=== PATIENT | female | born 1980 | race Caucasian/White ===

== ENCOUNTER 2024-12-20 05:22 | Emergency (ER) | payer BC, MEDICAID ==
[~2024-12-20] VITALS: Ht 172.7 cm; Wt 82.3 kg
[~2024-12-20 05:22] MED LIST: CARI350T PO; CYCL-1 PO; DIAZ5TAB PO; FLUT16SP10 NAS; NO HOME MEDS; ONDA4TAB6 PO
[2024-12-20 05:25] VITALS: TEMP 98.4
--- NOTE | 2024-12-20 05:35 | Physician Documentation ---
History of Present Illness ~ Chief Complaint: Back Pain Stated Complaint: LEFT SIDE PAIN Time Seen by MD: 05:34 Primary Medical Doctor: [facility] Patient presents to the emergency room for evaluation of lower back pain. Patient was history of chronic lower back pain and feels that may be the hardware she was had previously placed may have slipped out of alignment. No lower extremity symptoms. No bladder or bowel incontinence. Patient does report some degree of paresthesia to the skin on her left-sided back superior to area of pain Medication Reconciliation Allergies: Coded Allergies: No Known Allergies (Unverified , 12/20/24) Scheduled Diazepam (Valium), 1 TABLET PO HS Fluticasone Propionate (Flonase), 2 SPRAYS JESSICA DAILY Ondansetron Hcl (Zofran), 1 TABLET PO Q8H Prednisone* (Prednisone*), 1 TAB PO DAILY Prednisone* (Prednisone*), 1 TAB PO DAILY Scheduled PRN Carisoprodol (Soma), 1 TABLET PO Q6H PRN for muscle spasms Cyclobenzaprine* (Cyclobenzaprine*), 1 TABLET PO Q8H PRN for muscle spasms Cyclobenzaprine* (Cyclobenzaprine*), 1 TABLET PO Q8H PRN for muscle spasms Hydrocodone Bit/Acetaminophen 5/325 MG (Adkins 5/325 MG), 1-2 TAB PO Q4-6 hours PRN for pain Hydrocodone Bit/Acetaminophen 5/325 MG (Adkins 5/325 MG), 1 TAB PO Q4-6 hours PRN for pain Miscellaneous Medications Home Med List (No Home Medications), (Reported) Past Medical History Past Medical History: Chronic Back Pain Past Surgical History: hysterectomy, orthopedic surgeries Alcohol Use: None Drug Use: marijuana Lives with: Family Lives In: Home Occupation: employed Review of Systems ROS All review of systems negative except as per HPI Physical Exam Physical Exam Vital Signs: Temperature: 98.4, Heart Rate: 130, Respiratory Rate: 16, BP: 152/80, Pulse Oximetry: 100, Weight: 82.270 Oxygen Flow Rate: 0 Physical Exam General: Patient is awake, alert, oriented x4 in no acute distress Head: Normocephalic and atraumatic. Eyes: Conjunctival normal. EOMI. PERRL. ENT: Mucous membranes moist. Neck: Supple, trachea is midline. Chest: Clear to auscultation bilaterally without rales, rhonchi, or wheezes. There is no accessory muscle use or retractions. Cardiac: RRR without murmurs, gallops, or rubs. Extremities: Normal strength. Normal range of motion. No deformities or edema. Back: No midline spinal or CVA tenderness. Tenderness over left-sided SI joint Progress Results/Orders Results/Orders Orders - CAM MADDEN MD Lumbar Spine Limited (12/20/24 05:38) Completed Orders - CAM MADDEN MD Hydrocodone/Apap 5/325mg Tab (Adkins 5/32 (12/20/24 05:40) Ondansetron Disint. Tablet (Zofran Odt T (12/20/24 05:40) Medications Received in ER Medications (Trade) Dose Ordered Sig/Claudy Route PRN Reason Start Time Stop Time Status Last Admin Dose Admin (Adkins 5/325mg tablet) 2 tab ONCE ONCE PO 12/20/24 05:40 12/20/24 05:41 DC 12/20/24 06:09 2 TAB (Zofran ODT tablet) 4 mg ONCE ONCE PO 12/20/24 05:40 12/20/24 05:41 DC 12/20/24 06:09 4 MG Vital Signs 12/20/24 12/20/24 12/20/24 05:25 06:09 06:11 Temp 98.4 Pulse 130 102 Resp 16 15 16 B/P (MAP) 152/80 109/74 (86) Pulse Ox 100 100 O2 Flow Rate 0 Medical Decision Making Findings Patient presented to the emergency room with back pain as per HPI. Differentials include but are not limited to exacerbation of chronic back pain, broken hardware, radiculopathy, cauda equina. No symptoms of cauda equina I do not feel patient requires CT scan or MRI. X-ray negative for changes. Departure Disposition: HOME / SELF CARE / HOMELESS Impression: Primary Impression: Low back pain Condition: Stable Discharge Instructions: Acute Back Pain, Adult Additional Instructions: Follow up with your doctor as you may need referrals for physical therapy and additional imaging. Referrals: NO PRIMARY CARE PROVIDER (PCP) Prescriptions Prednisone* (Prednisone*) 20 Mg Tablet 1 TAB PO DAILY for 5 Days, #5 TAB Prov: CAM MADDEN MD 12/20/24 Hydrocodone Bit/Acetaminophen 5/325 MG (Adkins 5/325 MG) 5 Mg/325 Mg Tablet 1 TAB PO Q4-6 hours PRN for pain, #15 TAB Prov: CAM MADDEN MD 12/20/24 Prednisone* (Prednisone*) 20 Mg Tablet 1 TAB PO DAILY for 5 Days, #5 TAB Prov: CAM MADDEN MD 12/20/24 Hydrocodone Bit/Acetaminophen 5/325 MG (Adkins 5/325 MG) 5 Mg/325 Mg Tablet 1-2 TAB PO Q4-6 hours PRN for pain, #15 TAB Prov: CAM MADDEN MD 12/20/24 Education Educated: Patient Educated regarding: diagnosis, treatment, need for follow up Signature Scribe Signature: No scribe Attestation: The note accurately reflects work and decisions made by me.Cam Madden MD 12/20/24 05:57 CAM MADDEN MD December 20, 2024 05:35
[2024-12-20] MEDS ORDERED: HYDR-3965 PO (05:56)
[2024-12-20] MEDS ORDERED: PRED20TA PO (05:56)
[2024-12-20] MEDS: HYDROcodone/acetaminophen 5mg/325mg tablet PO ONE (06:09)
[2024-12-20] MEDS: ondansetron 4mg rapidly disintigrating tab PO ONE (06:09)
[2024-12-20 06:11] VITALS: BP 109/74; PULSE 102; RESP 16; O2SAT 100
--- NOTE | 2024-12-20 07:19 | RADIOLOGY REPORT ---
EXAM: XR Lumbosacral Spine, 2 or 3 Views CLINICAL INDICATION: suspected hardware change TECHNIQUE: Frontal and lateral views of the lumbar spine and sacrum. COMPARISON: None FINDINGS: VERTEBRAE: Unremarkable. No acute fracture. Normal alignment. SACRUM/COCCYX: Unremarkable as visualized. No acute fracture. DISC SPACES: Posterior fusion of L5-S1 with disc spacers. Bilateral sacroiliac fixation screws of t he sacroiliac joints. Intact hardware. Anatomic position. SOFT TISSUES: Unremarkable. OTHER FINDINGS: Postop changes as above. . IMPRESSION: Postop changes as above.
== END 2024-12-20 06:30 | disposition home or self-care (01) ==
LOC: ER 05:23
DX: M54.50 Low back pain, unspecified (principal); G89.29 Other chronic pain; M54.9 Dorsalgia, unspecified; F12.90 Cannabis use, unspecified, uncomplicated; Z90.710 Acquired absence of both cervix and uterus; Z79.899 Other long term (current) drug therapy
CPT/HCPCS: 72100; 99283